=== PATIENT | female | born 2000 | race African-American/Black ===

== ENCOUNTER 2024-08-20 18:18 | Emergency (ER) | payer SELFPAY ==
[~2024-08-20] VITALS: Ht 154.9 cm; Wt 51.0 kg
[2024-08-20 18:22] VITALS: TEMP 98.5; O2SAT 98
[2024-08-20 20:39] LABS: BASOPHILS % 0.3 % (0.0-2.0); HEMATOCRIT. 33.5 % (36.0-48.0); HEMOGLOBIN. 10.7 g/dL (12.0-16.0); LYMPHOCYTES % 38.9 % (20.0-50.0); MEAN CORPUSCULAR HEMOGLOBIN 27.1 pg (28.0-32.0); MEAN CORPUSCULAR HGB CONC 31.9 g/dL (31.0-37.0); MEAN CORPUSCULAR VOLUME 84.8 fL (81.0-99.0); MEAN PLATELET VOLUME 9.3 fl (7.4-10.4); MONOCYTES % 6.6 % (2.0-8.0); NEUTROPHILS % 53.2 % (40.0-76.0); PLATELET 252 x1000/uL (130-400); RED BLOOD CELL COUNT 3.96 mill/uL (4.2-5.4); RED CELL DISTRIBUTION WIDTH 14.2 % (11.6-14.6); WHITE BLOOD COUNT 11.2 x1000/uL (4.5-11.0)
[2024-08-20 20:46] LABS: CHLORIDE 109 mEq/L (98-107); POTASSIUM 3.8 mEq/L (3.5-5.1); SODIUM 139 mEq/L (136-145)
[2024-08-20 20:47] LABS: CALCIUM 9.3 mg/dL (8.7-10.4); CARBON DIOXIDE 24 mEq/L (21-32)
[2024-08-20 20:52] LABS: CREATININE 0.7 mg/dL (0.6-1.0); GLUCOSE 77 mg/dL (70-105); UREA NITROGEN BLOOD 18 mg/dL (9-23)
[2024-08-20 21:01] LABS: TROPONIN I HIGH SENSITIVITY < 4 ng/L (3.0-34)
[2024-08-20] MEDS ORDERED: BENZ100C86 MT (22:13)
[2024-08-20 22:45] VITALS: BP 100/60; PULSE 78; RESP 16; O2SAT 100
== END 2024-08-20 22:50 | disposition home or self-care (01) ==
LOC: ER 18:18
DX: R05.9 Cough, unspecified (principal); R09.81 Nasal congestion; Z20.822 Contact with and (suspected) exposure to COVID-19
CPT/HCPCS: 36415; 71045; 80048; 84484; 85025; 87426; 87804; 93005; 99285

== ENCOUNTER 2024-09-21 13:51 | Emergency (ER) | payer SELFPAY ==
[~2024-09-21] VITALS: Ht 154.9 cm; Wt 63.0 kg
[~2024-09-21 13:51] MED LIST: BENZ100C86 MT
[2024-09-21 14:10] VITALS: O2SAT 98
[2024-09-21 15:08] LABS: BASOPHILS % 0.5 % (0.0-2.0); EOSINOPHILS % 0.7 % (0.0-5.0); HEMATOCRIT. 34.8 % (36.0-48.0); HEMOGLOBIN. 11.4 g/dL (12.0-16.0); LYMPHOCYTES % 36.9 % (20.0-50.0); MEAN CORPUSCULAR HEMOGLOBIN 27.8 pg (28.0-32.0); MEAN CORPUSCULAR HGB CONC 32.7 g/dL (31.0-37.0); MEAN CORPUSCULAR VOLUME 84.9 fL (81.0-99.0); MEAN PLATELET VOLUME 8.9 fl (7.4-10.4); MONOCYTES % 7.6 % (2.0-8.0); NEUTROPHILS % 54.3 % (40.0-76.0); PLATELET 239 x1000/uL (130-400); RED CELL DISTRIBUTION WIDTH 14.7 % (11.6-14.6); WHITE BLOOD COUNT 8.8 x1000/uL (4.5-11.0)
[2024-09-21 15:13] LABS: CHLORIDE 111 mEq/L (98-107); POTASSIUM 3.5 mEq/L (3.5-5.1); SODIUM 141 mEq/L (136-145)
[2024-09-21 15:14] LABS: CALCIUM 9.5 mg/dL (8.7-10.4); CARBON DIOXIDE 27 mEq/L (21-32)
[2024-09-21 15:19] LABS: CREATININE 0.6 mg/dL (0.6-1.0); GLUCOSE 81 mg/dL (70-105); UREA NITROGEN BLOOD 11 mg/dL (9-23)
[2024-09-21 15:21] LABS: ALANINE AMINOTRANSFERASE < 7 IU/L (10-49); ALBUMIN 4.5 g/dL (3.2-4.8); ASPARTATE AMINOTRANSFERASE 16 IU/L (<34); BILIRUBIN DIRECT 0.2 mg/dL (<=3.0)
[2024-09-21 15:22] LABS: BILIRUBIN TOTAL 0.5 mg/dL (0.1-1.0); PROTEIN TOTAL 7.9 g/dL (6.0-8.3)
[2024-09-21] MEDS: ACETAMINOPHEN 325MG TABLET PO ONE (15:40)
[2024-09-21] MEDS: ONDANSETRON 4MG ODT PO ONE (15:41)
[2024-09-21 15:50] LABS: HCG SCREEN NEGATIVE
[2024-09-21 15:53] LABS: CLARITY URINE CLEAR (CLEAR); COLOR URINE YELLOW (YELLOW); GLUCOSE URINE NEGATIVE (NEGATIVE); KETONES URINE NEGATIVE (NEGATIVE); LEUKOCYTE ESTERASE URINE 2+ (NEGATIVE); NITRITE URINE NEGATIVE (NEGATIVE); OCCULT BLOOD URINE NEGATIVE (NEGATIVE); PH URINE 5.5 (4.5-8.0); PROTEIN URINE NEGATIVE (NEGATIVE); SPECIFIC GRAVITY URINE 1.015 (1.005-1.030); UROBILINOGEN URINE 0.2 E.U./dL (0.2-1.0)
[2024-09-21 16:21] LABS: BACTERIA URINE 1+; RBC URINE 0-2 /hpf (0-2); SQUAMOUS EPITHELIAL CELL URINE 1+ /lpf (RARE/1+)
[2024-09-21] MEDS ORDERED: IBUP-2028 MT (18:33)
[2024-09-21] MEDS ORDERED: CEPH500C2 MT (18:33)
[2024-09-21 18:50] VITALS: BP 98/60; PULSE 75; RESP 12; TEMP 37.05852
== END 2024-09-21 18:50 | disposition home or self-care (01) ==
LOC: ER 13:51
DX: N39.0 Urinary tract infection, site not specified (principal)
CPT/HCPCS: 99284; 74176; 80076; 80048; 81003; 81025; 84703; 83690; 85025; 36415; Q0162

== ENCOUNTER 2024-10-17 14:01 | Emergency (ER) | payer SELFPAY ==
[~2024-10-17] VITALS: Ht 154.9 cm; Wt 52.5 kg
[~2024-10-17 14:01] MED LIST changes: +CEPH500C2 MT; +IBUP-2028 MT
[2024-10-17 14:26] VITALS: O2SAT 99
[2024-10-17] MEDS: DEXAMETHASONE 10 MG/ML VIAL PO ONE (15:39)
[2024-10-17] MEDS: METOCLOPRAMIDE HCL 10MG TABLET PO ONE (15:39)
[2024-10-17 16:40] VITALS: BP 116/74; PULSE 74; RESP 16; TEMP 36.94740; O2SAT 99
== END 2024-10-17 16:41 | disposition home or self-care (01) ==
LOC: ER 14:01
DX: S09.90XA Unspecified injury of head, initial encounter (principal); Z79.52 Long term (current) use of systemic steroids; V49.49XA Driver injured in collision with other motor vehicles in traffic accident, initial encounter; Y93.89 Activity, other specified; Y92.89 Other specified places as the place of occurrence of the external cause; Y99.8 Other external cause status
CPT/HCPCS: 99284; 70450; J8597; J1100